=== PATIENT | female | born 1985 | race Caucasian/White ===

== ENCOUNTER 2021-10-19 15:47 | Emergency (ER) | payer OTHER ==
[~2021-10-19] VITALS: Ht 157.5 cm; Wt 90.9 kg
[2021-10-19] MEDS ORDERED: NAPR-1024 PO (18:18)
[2021-10-19 18:28] VITALS: BP 115/70
== END 2021-10-19 18:29 | disposition home or self-care (01) ==
LOC: EMS 15:51
DX: M25.462 Effusion, left knee (principal); F17.210 Nicotine dependence, cigarettes, uncomplicated
CPT/HCPCS: 99283